=== PATIENT | male | born 1960 | race Two or more races ===

== ENCOUNTER 2020-02-16 19:32 | Emergency (ER) | payer MEDICARE, OTHER ==
[~2020-02-16] VITALS: Ht 170.2 cm; Wt 95.7 kg
[2020-02-16 20:17] VITALS: BP 157/89
[2020-02-16] MEDS ORDERED: LORA-999 PO (20:27)
[2020-02-16] MEDS ORDERED: INSLAN SQ (20:27)
[2020-02-16 20:55] LABS: EOSINOPHILS % (AUTO) 1.4 % (1.0-6.0); HEMATOCRIT 38.4 % (41-53); HEMOGLOBIN 12.8 g/dL (13.5-17.5); MEAN CORPUSCULAR HEMOGLOBIN 28.6 pg (26.0-34.0); MEAN CORPUSCULAR HGB CONC 33.3 G/dL (31.0-37.0); MEAN CORPUSCULAR VOLUME 86 fL (80-100); MONOCYTES # (AUTO) 0.9 K/uL (0.1-1.0); MONOCYTES % (AUTO) 10.1 % (2.0-9.0); NEUTROPHILS # (AUTO) 7.1 K/uL (1.8-7.7); NEUTROPHILS % (AUTO) 76.5 % (40.0-70.0); PLATELET COUNT (AUTO) 355 K/uL (150-450); RED BLOOD CELL COUNT(AUTO) 4.48 MIL/uL (4.50-5.90); RED CELL DISTRIBUTION WIDTH 15.3 % (11.5-14.5)
[2020-02-16] MEDS ORDERED: SIMV-261 PO (21:00)
[2020-02-16] MEDS ORDERED: APIX5TAB PO (21:00)
[2020-02-16] MEDS ORDERED: ZONI100C31 PO (21:00)
[2020-02-16] MEDS ORDERED: HYOS-28 PO (21:00)
[2020-02-16] MEDS ORDERED: PANT-31 PO (21:00)
[2020-02-16] MEDS ORDERED: SENN8.6T20 PO (21:00)
[2020-02-16] MEDS ORDERED: [UNRECOGNIZED DRUG - CODE] PO (21:00)
[2020-02-16] MEDS ORDERED: HYDR-4119 PO (21:00)
[2020-02-16 21:10] LABS: ANION GAP 9 mmol/L (8-16); CARBON DIOXIDE 26 mmol/L (22-29); CHLORIDE 97 mmol/L (98-107); CREATININE 1.28 mg/dL (0.60-1.30); GLOMERULAR FILTR. RATE CALC 58 mL/min (>60); GLUCOSE,RANDOM 111 mg/dL (70-110); POTASSIUM 4.6 mmol/L (3.5-5.1); SODIUM SERUM 132 mmol/L (136-145); UREA NITROGEN, BLOOD 30 mg/dL (7-18)
[2020-02-16 21:16] LABS: ALANINE AMINOTRANSFERASE 39 U/L (12-78); ALBUMIN 3.3 g/dL (3.4-5.0); ALKALINE PHOSPHATASE 507 U/L (46-116); ASPARTATE AMINOTRANSFERASE 45 U/L (15-37); BILIRUBIN,TOTAL 0.7 mg/dL (0.1-1.0); TOTAL PROTEIN, SERUM 8.8 g/dL (6.4-8.2)
== END 2020-02-16 21:50 | disposition home or self-care (01) ==
LOC: EMS 19:34
DX: F32.9 Major depressive disorder, single episode, unspecified (principal); Z79.899 Other long term (current) drug therapy
CPT/HCPCS: 36415; 80053; 85025; 99285; G0480